=== PATIENT | female | born 1955 | race Caucasian/White ===

== ENCOUNTER 2017-07-30 22:03 | Emergency (ER) | payer OTHER ==
[2017-07-30] MEDS ORDERED: NS 1,000 ML IV ONE (22:32)
--- NOTE | 2017-07-30 22:37 | EDPHY ---
H & P Stated Complaint: Hx Diverticulitis, abdominal and back pain, nausea Time Seen by Provider: 07/30/17 22:19 HPI/ROS: Chief Complaint: Abdominal pain, back pain, fever HPI: 61-year-old woman with a history of diverticulitis in the past began having low back pain no lower abdominal cramping earlier this morning similar to her prior diverticulitis in the past. Patient says her symptoms persistent worsened over the course today. She did have a fever she says at home this afternoon. Some nausea but no vomiting. Last bowel movement was this morning was normal. Pain is primarily in the left lower abdomen. No dark black bowel movements or blood in her stool. No chest pain or shortness of breath. Pain at worst is about a 6/10. She is uncomfortable does not want any pain medicine at this time. She does have an appoint with her doctor tomorrow morning but was concerned that her symptoms might worsen overnight. ROS: 10 point Review of Systems is negative except as noted in the HPI. PMH: Diverticulitis Social History: No smoking, occasional alcohol, occasional edable marijuana Family History: non-contributory Physical Exam: Gen: Awake, Alert, No Distress HEENT: Nose: no rhinorrhea Eyes: PERRLA, EOMI Mouth: Moist mucosa Neck: Supple, no JVD Chest: nontender, lungs clear to auscultation Heart: S1, S2 normal, no murmur Abd: Soft, mild left lower quadrant tenderness to palpation, no guarding Back: no CVA tenderness, no midline tenderness Ext: no edema, non-tender Skin: no rash Neuro: CN II-XII intact, Sensation grossly intact, Strength 5/5 in bilateral upper and lower extremities - Personal History Current Tetanus/Diphtheria Vaccine: Yes Current Tetanus Diphtheria and Acellular Pertussis (TDAP): Yes - Medical/Surgical History Hx Asthma: No Hx Chronic Respiratory Disease: No Hx Diabetes: No Hx Cardiac Disease: No Hx Renal Disease: No Hx Cirrhosis: No Hx Alcoholism: No Hx HIV/AIDS: No Hx Splenectomy or Spleen Trauma: No Other PMH: pmh- walking pna (10/04). psh- ortho. diverticulitis - Social History Smoking Status: Never smoked Constitutional: Initial Vital Signs Temperature (C) 36.9 C 07/30/17 22:07 Heart Rate 83 07/30/17 22:07 Respiratory Rate 16 05/10/18 22:07 Blood Pressure 148/84 H 07/30/17 22:07 O2 Sat (%) 95 07/30/17 22:07 O2 Delivery Mode Room Air Allergies/Adverse Reactions: Sulfa (Sulfonamide Antibiotics) Allergy (Verified 07/30/17 22:04) Home Medications: Medication Instructions Recorded Progesterone 12/07/14 Amoxicillin/Clavulanate Pot 875 mg PO BID #28 tab 07/30/17 [Augmentin 875 MG TAB (*)] Medical Decision Making ED Course/Re-evaluation: Patient has symptoms which are consistent with uncomplicated diverticulitis. She does have a low white cell count with a left shift. Has a history of diverticulitis. Her exam is very benign however. Her abdomen is soft. She has no guarding. She has not required any analgesia or antiemetics in the emergency department. She has minimal left lower quadrant tenderness. Urinalysis is negative. Remainder of her laboratory evaluations are unremarkable. I have had a long discussion with her about imaging. I have explained that I do not think she has any findings consistent with acute surgical process. Symptoms are consistent with uncomplicated diverticulitis. Is certainly not unreasonable to get a CT scan to rule out acute micro perforation or abscess, how ever her symptoms have been present for less than 24 hr she is nontoxic in appearance, she is afebrile and she has a benign exam. Patient is agreement to hold off on CT scanning at this time. She does have an appoint with primary care physician in the morning. Will give her a dose of IV Unasyn here and switch her to Augmentin. She has been encouraged to return for any concerns but she certainly has no findings consistent with an acute surgical process at this time. Other Provider: 0005 care assumed from MARIE Saravia pending mental health evaluation. - Data Points Laboratory Results: Laboratory Results 07/30/17 22:50 07/30/17 22:50 07/30/17 07/30/17 07/30/17 22:50 22:50 22:15 WBC 12.99 10^3/uL H 10^3/uL (3.80-9.50) RBC 4.46 10^6/uL 10^6/uL (4.18-5.33) Hgb 13.6 g/dL g/dL (12.6-16.3) Hct 39.8 % % (38.0-47.0) MCV 89.2 fL fL (81.5-99.8) MCH 30.5 pg pg (27.9-34.1) MCHC 34.2 g/dL g/dL (32.4-36.7) RDW 13.5 % % (11.5-15.2) Plt Count 459 10^3/uL H 10^3/uL (150-400) MPV 9.0 fL fL (8.7-11.7) Neut % (Auto) 80.1 % H % (39.3-74.2) Lymph % (Auto) 12.8 % L % (15.0-45.0) [place] % (Auto) 5.6 % % (4.5-13.0) Eos % (Auto) 0.5 % L % (0.6-7.6) Baso % (Auto) 0.8 % % (0.3-1.7) Nucleat RBC Rel Count 0.0 % % (0.0-0.2) Absolute Neuts (auto) 10.40 10^3/uL H 10^3/uL (1.70-6.50) Absolute Lymphs (auto) 1.66 10^3/uL 10^3/uL (1.00-3.00) Absolute Monos (auto) 0.73 10^3/uL 10^3/uL (0.30-0.80) Absolute Eos (auto) 0.07 10^3/uL 10^3/uL (0.03-0.40) Absolute Basos (auto) 0.10 10^3/uL 10^3/uL (0.02-0.10) Absolute Nucleated RBC 0.00 10^3/uL 10^3/uL (0-0.01) Immature Gran % 0.2 % % (0.0-1.1) Immature Gran # 0.03 10^3/uL 10^3/uL (0.00-0.10) Sodium 137 mEq/L mEq/L (135-145) Potassium 4.0 mEq/L mEq/L (3.5-5.2) Chloride 101 mEq/L mEq/L (97-110) Carbon Dioxide 22 mEq/l mEq/l (22-31) Anion Gap 14 mEq/L mEq/L (8-16) BUN 11 mg/dL mg/dL (7-23) Creatinine 0.6 mg/dL mg/dL (0.6-1.0) Estimated GFR > 60 Glucose 90 mg/dL mg/dL (70-100) Calcium 9.7 mg/dL mg/dL (8.5-10.4) Urine Color PALE YELLOW Urine Appearance CLEAR Urine pH 5.0 (5.0-7.5) Ur Specific [place] 1.003 (1.002-1.030) Urine Protein NEGATIVE (NEGATIVE) Urine Ketones 1+ H (NEGATIVE) Urine Blood NEGATIVE (NEGATIVE) Urine Nitrate NEGATIVE (NEGATIVE) Urine Bilirubin NEGATIVE (NEGATIVE) Urine Urobilinogen NEGATIVE EU EU (0.2-1.0) Ur Leukocyte Esterase NEGATIVE (NEGATIVE) Urine Glucose NEGATIVE (NEGATIVE) Medications Given: Discontinued Medications Amoxicillin/Clavulanate Potassium (Augmentin 875mg) 875 mg PO EDNOW ONE PRN Reason: Protocol Stop: 07/30/17 23:33 Last Admin: 07/30/17 23:49 Dose: 875 mg Sodium Chloride (Ns) 1,000 mls @ 0 mls/hr IV ONCE ONE; Wide Open PRN Reason: Protocol Stop: 07/30/17 22:33 Last Admin: 07/30/17 22:54 Dose: 1,000 mls Ampicillin Sodium/Sulbactam (Sodium 3 gm/ Sodium Chloride) 100 mls @ 200 mls/ hr IV EDNOW ONE PRN Reason: Protocol Stop: 07/30/17 23:48 Last Admin: 07/30/17 23:49 Dose: 100 mls Morphine Sulfate (Morphine) 4 mg IVP ONCE ONE Stop: 07/30/17 23:54 Last Admin: 07/30/17 23:58 Dose: 4 mg Departure - Departure Disposition: Home, Routine, Self-Care Clinical Impression: Diverticulitis Condition: Good Instructions: Diverticulitis (ED) Referrals: Lydia Lin MD [Primary Care Provider] - As per Instructions Prescriptions: Amoxicillin/Clavulanate Pot [Augmentin 875 MG TAB (*)] 875 mg PO BID #28 tab
[2017-07-30 23:01] LABS: PLATELET COUNT 459 10^3/uL (150-400)
[2017-07-30] MEDS ORDERED: AMPICILLIN/SULBACTAM 3 GM in NS 100 ML IV ONE (23:19)
[2017-07-30] MEDS ORDERED: AMOXICILLIN/CLAVULANATE POT 875/125 MG TAB PO ONE (23:32)
[2017-07-31 00:27] VITALS: BP 111/70
== END 2017-07-31 00:30 | disposition home or self-care (01) ==
DX: K57.90 Diverticulosis of intestine, part unspecified, without perforation or abscess without bleeding (principal); E86.9 Volume depletion, unspecified
CPT/HCPCS: 96365; J0295; J2270

== ENCOUNTER → 2017-08-05 | Outpatient (CLI) | payer OTHER | LOC: FIMAGING 10:53 | PROVIDERS: ATTEND Internal Medicine | DX: Z12.31 Encounter for screening mammogram for malignant neoplasm of breast (principal) ==

== ENCOUNTER 2018-01-08 05:46 | Day surgery (SDC) | payer OTHER ==
--- NOTE | 2017-12-23 12:23 | PDGENHP ---
History and Physical - Chief Complaint preop for hysteroscopy with endometrial sampling - History of Present Illness 62 yo here for pre-op on 12/21/17 for hysteroscopy with endometrial sampling scheduled for 01/08/18. Menses stopped at age 44, in 2000. No vaginal bleeding until intermittent spotting over the past 5 years. Had an endometrial biopsy done with [facility] in 2016- read as scant (first one done there was inadequate). 10/23/17 endometrial biopsy done in office at [facility] by myself = benign. Pt continued to have spotting intermittently through November. Agreed to proceed with hysteroscopy with endometrial sampling for further evaluation. 35 yr, sexually active with only. Had pelvic ultrasound done 09/24/2017 - normal appearing uterus with endometrial stripe of 0.86mm, with a 3mm cystic area. Normal appearing ovaries. Has been on combo HRT for 10 years - Estradiol patch and compounded micronized oral progesterone, and vaginal estrogen cream. Benign mammogram 07/2017. History Information - Allergies/Home Medication List Allergies/Adverse Reactions: Sulfa (Sulfonamide Antibiotics) Allergy (Verified 12/17/17 16:10) RASH/SWELLING/FEVER Home Medications: Progesterone DAILY 12/07/14 [Last Taken Unknown] Estradiol Transdermal Patch ONCE 12/17/17 [Last Taken Unknown] Herbals/Supplements -Info Only DAILY 12/17/17 [Last Taken Unknown] I have personally reviewed and updated: family history, medical history, social history, surgical history Past Medical History: diverticulosis. essential thrombocythemia - Surgical History Additional surgical history: breast bx x 2 - benign. x 2. R hand 2013 tendon repair. wrist - 2013. Abomdinal myomectomy - 1988 - Family History Additional family history: M - breast and lung ca at 68. PGM - breast ca. Aunt and sister - polycythemia vera - Social History Smoking Status: Never smoked Alcohol Use: Occasionally (1 d / wk) Drug Use: Marijuana (1x/wk) Additional social history: 35 yr Review of Systems Review of Systems: ROS: 10pt was reviewed & negative except for what was stated in HPI & below Physical Exam Physical Exam: 124/80 wt 125.6lb Constitutional: no apparent distress, appears nourished Eyes: PERRL Ears, Nose, Mouth, Throat: moist mucous membranes, hearing normal, ears appear normal Cardiovascular: regular rate and rhythym, no murmur, rub, or gallop Respiratory: no respiratory distress, no rales or rhonchi Gastrointestinal: normoactive bowel sounds, soft, non-tender abdomen, no palpable masses Genitourinary: no bladder fullness, other (pelvic - NEFG; vagina - pink, no lesions, nl dc; cervix - stenotic, no lesions, no CMT; uterus - small, av, NSS, mobile; adnexa - no masses or tenderness) Skin: warm, normal color Musculoskeletal: full muscle strength Neurologic: AAOx3, sensation intact bilaterally Psychiatric: interacting appropriately, not anxious Lymph, Heme, Immunologic: no cervical LAD Assessment & Plan Assessment: 62 with postmenopausal bleeding in HRT, benign biopsies in office, thick endometrial stripe on ultrasound. Written informed consent obtained. Given lab slip for TSH and CBC Will proceed with hysteroscopy with endometrial sampling on 01/08/18. Kate Casey MD, FACOG [facility]
[2018-01-08] MEDS ORDERED: LR 1,000 ML IV ONE (05:55)
[2018-01-08] MEDS ORDERED: LIDOCAINE 1% 2 ML INJ ID PRN (05:55)
--- NOTE | 2018-01-08 06:57 | PDANEPAE ---
ANE Past Medical History - Cardiovascular History Hx Hypertension: No Hx Arrhythmias: No Hx Chest Pain: No Hx Coronary Artery / Peripheral Vascular Disease: No Hx CHF / Valvular Disease: No Hx Palpitations: No Cardiovascular History Comment: MITRAL VALVE PROLAPSE - Pulmonary History Hx COPD: No Hx Asthma/Reactive Airway Disease: No Hx Recent Upper Respiratory Infection: No Hx Oxygen in Use at Home: No Hx Sleep Apnea: No - Neurologic History Hx Cerebrovascular Accident: No Hx Seizures: No Hx Dementia: No - Endocrine History Hx Diabetes: No Hypothyroid: No Hyperthyroid: No Obesity: no - Renal History Hx Renal Disorders: No - Liver History Hx Hepatic Disorders: No - Neurological & Psychiatric Hx Hx Neurological and Psychiatric Disorders: No - Cancer History Hx Cancer: No - Congenital Disorder History Hx Congenital Disorders: No - GI History GERD: mild Hx Gastrointestinal Disorders: Yes Gastrointestinal History Comment: DEVELOPS COUGH WHEN LAYING DOWN. DIVERTICULITIS LAST EPISODE 07/2017 TREATED WITH ANTIBIOTICS - Other Health History Other Health History: THROMBOCYTHEMIA HAD PREV VISIT WITH ONCOLOGIST. INCREASED BLEEDING. RT UPPER ARM CELLULITIS 2016 - Surgical History Prior Surgeries: MYOMECTOMY. BREAST BX. LT WRIST/HAND ANE Review of Systems Review of Systems: - Exercise capacity Exercise capacity: >=4 METS METS (RN): 5 METS ANE Patient History - Allergies Allergies/Adverse Reactions: Sulfa (Sulfonamide Antibiotics) Allergy (Verified 12/17/17 16:10) RASH/SWELLING/FEVER - Home Medications Home Medications: Progesterone DAILY 12/07/14 [Last Taken Unknown] Estradiol Transdermal Patch ONCE 12/17/17 [Last Taken Unknown] Herbals/Supplements -Info Only DAILY 12/17/17 [Last Taken Unknown] - NPO status NPO Since - Liquids (Date): 01/07/18 NPO Since - Liquids (Time): 21:00 NPO Since - Solids (Date): 01/07/18 NPO Since - Solids (Time): 19:00 - Anes Hx Anes Hx: no prior problems - Smoking Hx Smoking Status: Never smoked Marijuana use: No - Alcohol Use Alcohol Use: Occasionally (1 d / wk) - Family Anes Hx Family Anes Hx: neg - N/A ANE Labs/Vital Signs - Vital Signs Blood Pressure: 98/62 Heart Rate: 64 Respiratory Rate: 20 O2 Sat (%): 96 Height: 161.93 cm Weight: 56.245 kg ANE Physical Exam - Airway Neck exam: FROM Mallampati Score: Class 2 Mouth exam: normal dental/mouth exam - Pulmonary Pulmonary: no respiratory distress, no rales or rhonchi, clear to auscultation - Cardiovascular Cardiovascular: regular rate and rhythym, no murmur, rub, or gallop - ASA Status ASA Status: II ANE Anesthesia Plan Anesthesia Plan: GA w LMA Total IV Anesthesia: No
[2018-01-08] MEDS ORDERED: oxyCODONE IR 5 MG TAB PO PRN ×2 (07:12→08:28)
[2018-01-08] MEDS ORDERED: MIDAZOLAM 2 MG/2 ML VIAL IVP ONE (07:12)
[2018-01-08] MEDS ORDERED: ACETAMINOPHEN 500 MG TAB PO PRN (07:12)
[2018-01-08] MEDS ORDERED: PHENYLEPHRINE HCL 100 MCG/ML SYR IVP PRN (07:12)
[2018-01-08] MEDS ORDERED: NALOXONE HCL 0.4 MG/ML INJ IVP PRN (07:12)
[2018-01-08] MEDS ORDERED: LR 500 ML IV PRN (07:12)
[2018-01-08] MEDS ORDERED: fentaNYL 100 MCG/2 ML INJ IVP PRN (07:12)
[2018-01-08] MEDS ORDERED: HYDROCODONE/APAP 5/325 TAB PO PRN (07:12)
[2018-01-08] MEDS ORDERED: PROMETHAZINE HCL 25 MG/ML INJ IVP PRN (07:12)
[2018-01-08] MEDS ORDERED: ONDANSETRON 4 MG/2 ML VIAL IVP PRN (07:12)
[2018-01-08] MEDS ORDERED: MIDAZOLAM 2 MG/2 ML VIAL ONE (07:14)
--- NOTE | 2018-01-08 07:16 | PDHPUP ---
History & Physical Update H&P update statement: This history and physical update is based on an assessment of the patient which was completed after admission or registration (within 24 hours), but prior to the surgery/procedure. H&P update: H&P reviewed & patient examined, no change in patient's condition since H&P completed
[2018-01-08] MEDS ORDERED: fentaNYL 100 MCG/2 ML INJ ONE (07:19)
[2018-01-08] MEDS ORDERED: RANITIDINE 50 MG/2 ML VIAL ONE (07:19)
[2018-01-08] MEDS ORDERED: DEXAMETHASONE 4 MG/ML VIAL ONE (07:19)
[2018-01-08] MEDS ORDERED: PROPOFOL 200 MG/20 ML VIAL ONE (07:19)
[2018-01-08] MEDS ORDERED: ONDANSETRON 4 MG/2 ML VIAL ONE (07:19)
[2018-01-08] MEDS ORDERED: BUPIVACAINE 0.25% 30 ML SDV ONE (07:34)
[2018-01-08] MEDS ORDERED: SILVER NITRATE APPLICATOR 1 APPL TP ONE (07:34)
[2018-01-08] MEDS ORDERED: KETOROLAC 30 MG/1 ML SDV ONE (07:37)
--- NOTE | 2018-01-08 08:26 | POSTOPPROG ---
Post Op Note Date of Operation: 01/08/18 Surgeon: Kate Casey Anesthesiologist: Jones Bocanegra Anesthesia: LMA Pre-op Diagnosis: postmenopausal bleeding, thick endometrial lining Post-op Diagnosis: same and endometrial polyp Indication: persistent postmenopausal bleeding Procedure: hysteroscopy with polypectomy and endometrial sampling Findings: uterus sounded to 6.5cm, anterior wall endometrial polyp Inf/Abcess present in the surg proc area at time of surgery?: No EBL: Minimal Total fluids administered: 750 ml Complications: none Specimen(s): Endometrial curettings and polyp
--- NOTE | 2018-01-08 08:46 | POSTANESTH ---
Post Anesthetic Evaluation Cardiovascular Status: Normal, Stable Respiratory Status: Normal, Stable Level of Consciousness/Mental Status: Can Participate in Eval Pain Control: Adequate, Prn Tx Ordered Nausea/Vomiting Control: Adequate, Prn Tx Ordered Complications Possibly Related to Anesthesia: None Noted
--- NOTE | 2018-01-08 09:07 | GOP ---
DATE OF OPERATION: 01/08/2018 SURGEON: Kate Casey MD ANESTHESIA: LMA. ANESTHESIOLOGIST: Jones Bocanegra DO. PREOPERATIVE DIAGNOSIS: 1. Postmenopausal bleeding. 2. Thick endometrial lining. POSTOPERATIVE DIAGNOSIS: 1. Postmenopausal bleeding. 2. Thick endometrial lining. 3. Endometrial polyp. PROCEDURE PERFORMED: Hysteroscopy with polypectomy and endometrial sampling. FINDINGS: Uterus sounded to 6.5 cm. Normal-appearing ostia bilaterally. Anterior wall endometrial polyp. SPECIMENS: Endometrial curettings and endometrial polyp. ESTIMATED BLOOD LOSS: Minimal. INDICATIONS: 62-year-old female with persistent postmenopausal bleeding despite negative endometrial biopsies in the office. Ultrasound imaging revealed a 9 mm endometrial lining with a 3 mm cystic area. The decision was made to proceed with hysteroscopy with endometrial sampling. DESCRIPTION OF PROCEDURE: Written informed consent was reviewed with the patient in the preoperative area. She was taken to the operating room, placed in the dorsal supine position. When general anesthesia with LMA was deemed adequate she was placed in the modified dorsal lithotomy position using the Yellofin stirrups. Her vulva, perineum and vagina were prepared with Betadine and draped in the standard fashion. She had voided prior to coming back to the operating room. A complete time-out was performed. A speculum was inserted. A paracervical block using 0.25% Marcaine was placed. Tenaculum was placed on the anterior lip of the cervix and the uterus sounded to 6.5 cm. The cervix was dilated to 6 mm. The Hysteroscope was inserted with the above findings. The Mix and Nephew polyp tissue remover device was inserted. The polyp was removed and the entire cavity was sampled. The hysteroscope was removed and the tenaculum was removed. Silver nitrate was used to obtain hemostasis at the tenaculum site. Speculum was removed. Sponge, lap, and needle counts were correct x2 and the patient was taken to the recovery room in stable condition. She will be discharged to home shortly. She already has a prescription for Percocet at home. TOTAL FLUIDS ADMINISTERED: 750. Hysteroscopy saline fluid deficit was 120 mL. COMPLICATIONS: None. /[id number]/MODL MTDD
[2018-01-08 09:09] VITALS: BP 116/61
== END 2018-01-08 09:25 | disposition home or self-care (01) ==
LOC: FSGY 05:46
PROVIDERS: ATTEND Hospitalist
PROC: 0UDB8ZX Extraction of Endometrium, Via Natural or Artificial Opening Endoscopic, Diagnostic (ICD-10-PCS; principal; 2018-01-08 07:15)
DX: N95.0 Postmenopausal bleeding (principal); N84.0 Polyp of corpus uteri; D47.3 Essential (hemorrhagic) thrombocythemia; I34.1 Nonrheumatic mitral (valve) prolapse; Z79.890 Hormone replacement therapy; Z80.3 Family history of malignant neoplasm of breast; Z88.2 Allergy status to sulfonamides
CPT/HCPCS: C1782; J1100; J1885; J2250; J2405; J2704; J2780; J3010

== ENCOUNTER → 2018-03-17 | Outpatient (CLI) | payer OTHER | LOC: BMCIMAGING 09:41 | PROVIDERS: ATTEND Internal Medicine | DX: Z13.820 Encounter for screening for osteoporosis (principal); M81.0 Age-related osteoporosis without current pathological fracture ==

== ENCOUNTER → 2018-07-23 | Outpatient (CLI) | payer OTHER | LOC: FLAB 10:13 | PROVIDERS: ATTEND Internal Medicine | DX: R91.8 Other nonspecific abnormal finding of lung field (principal) ==